=== PATIENT | male | born 1980 | race Caucasian/White ===

== ENCOUNTER 2016-07-14 16:46 | Emergency (ER) | payer MEDICAID ==
--- NOTE | 2016-07-14 17:38 | ED Physician Chart ---
Chief Complaint/HPI - Patient Information Date Seen:: 07/14/16 Time Seen:: 17:23 Chief Complaint:: LOW POTASSIUM History of Present Illness:: This 35-year-old male was referred to the emergency department by his primary care physician, Dr. Brown for evaluation of hypokalemia resistant to outpatient management. The patient has a history of hepatitis C, alcoholic liver disease, anemia and has been hospitalized recently for rehabilitation from a ground-level fall resulting in severe head injury. the patient denies any headache, chest pain, abdominal pain, nausea, vomiting, diarrhea or urinary symptoms. Allergies:: Allergies Allergy/AdvReac Type Severity Reaction Status Date / Time Penicillins [PCN] Allergy UNKNOWN Verified 03/08/16 15:38 Vitals:: Vital Signs - 8 hr 07/14/16 07/14/16 17:07 17:10 Temp 99.2 F HR 72 RR 15 BP 137/82 137/81 O2 Sat % 98 Review of Systems - Review of Systems General/Constitutional: No fever, No chills ( so), No weakness ( now he said he was the only one), No diaphoresis, No loss of appetite Skin: No skin lesions, No rash, No bruising Head: No headache, No light-headedness Eyes: No loss of vision, No diplopia ENT: No earache, No sore throat, No tinnitus ( that she) Neck: No neck pain, No swelling, No stiffness, Mass noted Cardio Vascular: No chest pain, No palpitations, No orthopnea, No edema Pulmonary: No SOB, No cough, No sputum GI: No nausea, No vomiting, No diarrhea, No pain, No hematemesis G/U: No dysuria, No frequency, No hematuria Order Planner: No abnormal vaginal bleed Musculoskeletal: Bone or joint pain, No bone or joint pain, No back pain, No muscle pain Endocrine: No polyuria, No polydipsia Psychiatric: No suicidal ideation Hematopoietic: No bruising, No lymphadenopathy Allergic/Immuno: No urticaria, No angioedema Neurological: No syncope, No focal symptoms, No weakness, No paresthesia, No seizure, No dizziness, No confusion, No vertigo Past Medical History - Past Medical History Social History: Smoker, Alcohol, No Drug Use, Single, Care Facility Surgical History: PEG/GTube ( the G-tube was recently removed and there is now a stoma in its place.) Family Medical History - Family Member Mother History Unknown: Yes Ethnicity: Living Status: Hx Family Cancer: No Hx Family Coronary Artery Disease: No Hx Family Congestive Heart Failure: Yes Hx Family Hypertension: No Hx Family Stroke: No Hx Family Diabetes: Yes (father type 2) Hx Family Seizures: No Hx Family Dementia: No Hx Family AIDS: No Hx Family HIV: No Hx Family COPD: No Hx Family Hepatitis: Yes (hep c) Hx Family Psychiatric Problems: Yes (pt unknown) Hx Family Tuberculosis: No Physical Exam - Physical Examination General/Constitutional: Alert, No distress, Non-toxic appearing Other Gen/Cons comments:: He appears chronically ill and pale. Head: Atraumatic Eyes: Lids, conjuctiva normal, PERRL, EOMI Other Eyes comments:: Sclera non-enteric Skin: No ecchymosis Other Skin comments:: mild acne diffusely ENMT: External ears, nose nl ( and), Nasal exam nl, Lips, teeth, gums nl, Oropharynx nl, Tonsils nl Other Neck comments:: residual tracheostomy stoma. Respiratory: Nl effort/Exclusion, Clear to Auscultation, No Wheeze/Rhonchi/Rales Cardio Vascular: RRR, No murmur, gallop, rubs, NL S1 S2 Other Cardio Vascular comments:: Adequate pulses in all four extremities. Labs/Radiology/EKG Results - Lab Results Results: Laboratory Tests 07/14/16 17:00 Sodium 139 Potassium 3.6 Chloride 108 H Carbon Dioxide 23.6 Anion Gap 11.0 BUN 17 Creatinine 0.8 Est GFR ( Amer) > 60.0 Est GFR (Non-Af Amer) > 60.0 BUN/Creatinine Ratio 21.3 Glucose 125 H Calcium 9.4 Total Bilirubin 0.9 AST 116 H ALT 104 H Alkaline Phosphatase 82 Total Protein 7.3 Albumin 3.1 L Globulin 4.2 Albumin/Globulin Ratio 0.7 L LABORATORY INTERPRETATION: the patient's electrolytes are all within normal parameters except for a serum chloride of 108. Renal function is normal. There is mild elevation of the AST and the ALT which is consistent with chronic hepatitis C. Impression: NO HYPOKALEMIA EKG INTERPRETATION: normal sinus rhythm at a rate of 82 with no ectopy. Normal axis. Normal TN interval. Normal QRS duration. Normal QT interval. No ST segment elevation or depression . IMPRESSION: voltage criteria for LVH. No EKG findings of hypokalemia. Assessment - Assessment General Assessment: CASE SUMMARY: IS 35-YEAR-OLD MALE WAS SENT TO THE EMERGENCY DEPARTMENT SUMMARY for evaluation of hypokalemia. Test him was in the middle of the normal range patient had no acute complaints or physical findings. I discussed the case with Alan Melendez who was covering for for that we confirmed that he could be returned to the assisted living facility. The patient was discharged in stable condition. ED Septic Shock - . Is Septic Shock (SBP<90, OR Lactate>4 mmol\L) present?: No - <6hrs of presentation: Vital Signs: Vital Signs - 8 hr 07/14/16 07/14/16 17:07 17:10 Temp 99.2 F HR 72 RR 15 BP 137/82 137/81 O2 Sat % 98 Reassessment (Disposition) - Reassessment Reassessment Condition:: Unchanged - Diagnosis Diagnosis:: CHRONIC HEPATITIS C, CIRRHOSIS, status post traumatic brain injury. HTN - Aftercare/Follow up Instructions Aftercare/Follow-Up Instructions:: Counseled pt regarding lab results/diagnosis & need follow up, Counseled pt & family regarding lab results/diagnosis & need follow up (d No I don't I think nasal allergies and dripping down the back of the throatnot otherwise in OSition. Are I want to know what time it took anything with last night and now I didn't the) - Patient Disposition Discharge/Transfer:: Residential/Boarding Care ED Discharge Plan - Patient Disposition Admit/Discharge/Transfer: PT DISCHARGED HOME Instructions: Traumatic Brain Injury, Hypokalemia, Cirrhosis Accepting Physician: Dylan Sigala [Primary Care Provider] - 1-3 Days
[2016-07-14 18:01] LABS: ALB/GLOB RATIO 0.7 (1.0-1.8); ALKALINE PHOSPHATASE 82 U/L (34-104); BILIRUBIN,TOTAL 0.9 mg/dL (0.3-1.0); BUN - UREA NITROGEN 17 mg/dL (7-25); BUN/CREATININE RATIO 21.3; CALCIUM SERUM 9.4 mg/dL (8.6-10.3); CARBON DIOXIDE 23.6 mEq/L (21.0-31.0); CHLORIDE 108 mEq/L (98-107); CREATININE - SERUM 0.8 mg/dL (0.7-1.3); GLUCOSE 125 mg/dL (70-105); POTASSIUM SERUM 3.6 mEq/L (3.5-5.1); SGOT 116 U/L (13-39); SGPT/ALT 104 U/L (7-52); SODIUM SERUM 139 mEq/L (136-145)
[2016-07-14 18:14] VITALS: BP 137/82
== END 2016-07-14 20:25 | disposition home or self-care (01) ==
LOC: ER 16:46
DX: B18.2 Chronic viral hepatitis C (principal); K74.60 Unspecified cirrhosis of liver; I10 Essential (primary) hypertension; F17.200 Nicotine dependence, unspecified, uncomplicated; Z88.0 Allergy status to penicillin; Z93.1 Gastrostomy status
CPT/HCPCS: 36415-UA; 80053-TC; 93005; Z7610